=== PATIENT | male | born 1960 | race American Indian/Alaskan Native ===

== ENCOUNTER 2018-10-21 23:23 | Emergency (ER) | payer SELFPAY ==
--- NOTE | 2018-10-21 23:43 | Emergency Department Report ---
HPI - General Time Seen by Provider: 10/21/18 23:33 - HPI HPI: 58-year-old male with a past medical history of hypertension presents to the hospital with complaints of fluctuating blood pressure. Patient admits to being intimately compliant with his blood pressure medication. He has noticed that his blood pressure becomes elevated every time he becomes overheated and decreases when he is under cold air. One week ago patient had initial episode of feeling overheated and had some pressure behind the left eye. Symptoms resolved after cooling himself down. He denies any blurred vision, headache, nausea, vomiting, focal weakness, focal numbness, chest pain, or shortness of breath. Patient states he is intermittently compliant with his medications because sometimes he gets busy and forgets to take it. bp 200'2/110's initially as per EMS than decreased spontaneously ED Past Medical Hx - Past Medical History Hx Hypertension: Yes - Medications Home Medications: Home Medications Medication Instructions Recorded Confirmed Last Taken Type hydroCHLOROthiazide 25 mg PO DAILY #30 tablet 10/22/18 Unknown Rx [Hydrochlorothiazide] ED Review of Systems ROS: Stated complaint: PRESSURE/TINGLING BEHIND LEFT EYE Other details as noted in HPI Physical Exam - Physical Exam Physical Exam: General: No acute distress Eyes: Normal appearance, pupils equal reactive to light, extraocular movements intact ENT: Normal oropharynx Neck: Normal appearance, no C-spine tenderness, no meningismus Chest: Clear to auscultation bilaterally, no wheezes, rales, or crackles Cardiovascular: Regular rate and rhythm Abdomen: Soft, nondistended, nontender, no rebound or guarding, normal bowel sounds Back: Normal inspection, nontender Extremity: Normal inspection, no deformity, full range of motion Neuro: Alert and oriented 3, speech clear, no gross motor or sensory deficit, [id number] function intact Skin: No rash, once, or erythema ED Medical Decision Making - Lab Data Result diagrams: 10/21/18 23:50 10/21/18 23:50 Lab Results 10/21/18 10/21/18 Range/Units 23:50 23:50 WBC 6.1 (4.5-11.0) K/mm3 RBC 4.40 (3.65-5.03) M/mm3 Hgb 13.9 (11.8-15.2) gm/dl Hct 40.1 (35.5-45.6) % MCV 91 (84-94) fl MCH 32 (28-32) pg MCHC 35 H (32-34) % RDW 13.5 (13.2-15.2) % Plt Count 214 (140-440) K/mm3 Add Manual Diff Complete Total Counted 100 Seg Neuts % (Manual) 47.0 (40.0-70.0) % Band Neutrophils % 0 % Lymphocytes % (Manual) 47.0 H (13.4-35.0) % Reactive Lymphs % (Man) 0 % Monocytes % (Manual) 5.0 (0.0-7.3) % Eosinophils % (Manual) 1.0 (0.0-4.3) % Basophils % (Manual) 0 (0.0-1.8) % Metamyelocytes % 0 % Myelocytes % 0 % Promyelocytes % 0 % Blast Cells % 0 % Nucleated RBC % Not Reportable Seg Neutrophils # Man 2.9 (1.8-7.7) K/mm3 Band Neutrophils # 0.0 K/mm3 Lymphocytes # (Manual) 2.9 (1.2-5.4) K/mm3 Abs React Lymphs (Man) 0.0 K/mm3 Monocytes # (Manual) 0.3 (0.0-0.8) K/mm3 Eosinophils # (Manual) 0.1 (0.0-0.4) K/mm3 Basophils # (Manual) 0.0 (0.0-0.1) K/mm3 Metamyelocytes # 0.0 K/mm3 Myelocytes # 0.0 K/mm3 Promyelocytes # 0.0 K/mm3 Blast Cells # 0.0 K/mm3 WBC Morphology Not Reportable Hypersegmented Neuts Not Reportable Hyposegmented Neuts Not Reportable Hypogranular Neuts Not Reportable Smudge Cells Not Reportable Toxic Granulation Not Reportable Toxic Vacuolation Not Reportable Dohle Bodies Not Reportable Pelger-Huet Anomaly Not Reportable Colleen Rods Not Reportable Platelet Estimate Consistent w auto Clumped Platelets Not Reportable Plt Clumps, EDTA Not Reportable Large Platelets Not Reportable Giant Platelets Not Reportable Platelet Satelliting Not Reportable Plt Morphology Comment Not Reportable RBC Morphology Normal Dimorphic RBCs Not Reportable Polychromasia Not Reportable Hypochromasia Not Reportable Poikilocytosis Not Reportable Anisocytosis Not Reportable Microcytosis Not Reportable Macrocytosis Not Reportable Spherocytes Not Reportable Pappenheimer Bodies Not Reportable Sickle Cells Not Reportable Target Cells Not Reportable Tear Drop Cells Not Reportable Ovalocytes Not Reportable Helmet Cells Not Reportable Garza-Marrowbone Bodies Not Reportable [place] Rings Not Reportable [place] Cells Not Reportable Bite Cells Not Reportable Crenated Cell Not Reportable Elliptocytes Not Reportable Acanthocytes (Spur) Not Reportable Rouleaux Not Reportable Hemoglobin C Crystals Not Reportable Schistocytes Not Reportable Malaria parasites Not Reportable Armando Bodies Not Reportable Hem Pathologist Commnt No Sodium 140 (137-145) mmol/L Potassium 3.5 L (3.6-5.0) mmol/L Chloride 100.6 (98-107) mmol/L Carbon Dioxide 30 (22-30) mmol/L Anion Gap 13 mmol/L BUN 16 (9-20) mg/dL Creatinine 1.0 (0.8-1.5) mg/dL Estimated GFR > 60 ml/min BUN/Creatinine Ratio 16 % Glucose 155 H (75-100) mg/dL Calcium 9.6 (8.4-10.2) mg/dL - Medical Decision Making pt asymptomatic bp improved in ed mild hypokalemia tx with po kcl pt encouraged to take the meds everyday starting this am f/u with pmd advised - Differential Diagnosis hypertensive emergency, hypertensive urgency, heat exposure/toxicity Critical Care Time: No Critical care attestation.: If time is entered above; I have spent that time in minutes in the direct care of this critically ill patient, excluding procedure time. ED Disposition Clinical Impression: Hypertension, Noncompliance with medication regimen, Hypokalemia Disposition: DC-01 TO HOME OR SELFCARE Is pt being admited?: No Does the pt Need Aspirin: No Condition: Stable Instructions: Hypertension (ED), Hypokalemia (ED) Additional Instructions: Take the medications as prescribed. Follow-up with your doctor or with a doctor/clinic provided. Return is symptoms worsen as indicated by the discharge instructions. Prescriptions: hydroCHLOROthiazide [Hydrochlorothiazide] 25 mg PO DAILY #30 tablet Referrals: DAVID ALEJANDRE DO [Staff Physician] - 3-5 Days Time of Disposition: 01:54
[2018-10-22 00:07] LABS: Hematocrit 40.1 % (35.5-45.6); Hemoglobin 13.9 gm/dl (11.8-15.2); Mean Corpuscular HGB Conc 35 % (32-34); Mean Corpuscular Volume 91 fl (84-94); Platelet Count 214 K/mm3 (140-440); Red Cell Distribution Width 13.5 % (13.2-15.2)
[2018-10-22 00:17] VITALS: BP 145/95
[2018-10-22 00:34] LABS: BUN/Creatinine Ratio 16; Blood Urea Nitrogen 16 mg/dL (9-20); Calcium 9.6 mg/dL (8.4-10.2); Hemolysis Index 11
[2018-10-22] MEDS ORDERED: K-DUR PO ONE (01:07)
[2018-10-22 01:32] LABS: Basophils % (Manual) 0 % (0.0-1.8); Total Cells Counted 100
[2018-10-22 01:33] LABS: Platelet Estimate Consistent w Auto; RBC Morphology Normal
== END 2018-10-22 02:21 | disposition home or self-care (01) ==
LOC: ED 23:23
DX: E87.6 Hypokalemia (principal); I10 Essential (primary) hypertension
CPT/HCPCS: 36415; 80048; 85007; 85025